=== PATIENT | female | born 2000 | race Caucasian/White ===

== ENCOUNTER 2020-08-26 14:09 | Emergency (ER) | payer MEDICAID ==
[~2020-08-26] VITALS: Ht 160 cm; Wt 49.0 kg
--- NOTE | 2020-08-26 14:13 | NUR ---
CALLED FOR TRIAGE, NO ANSWER
[2020-08-26 16:02] VITALS: BP 112/66
== END 2020-08-26 16:45 | disposition home or self-care (01) ==
LOC: ED 14:38
DX: J06.9 Acute upper respiratory infection, unspecified (principal); Z20.828 Contact with and (suspected) exposure to other viral communicable diseases; J02.8 Acute pharyngitis due to other specified organisms; B97.89 Other viral agents as the cause of diseases classified elsewhere; R51.9 Headache, unspecified; R10.9 Unspecified abdominal pain; R53.1 Weakness
CPT/HCPCS: 36415; 71045; 87081; 87635; 87880; 99284